=== PATIENT | female | born 1950 | race Caucasian/White ===

== ENCOUNTER 2020-10-23 09:40 | Outpatient (REF) | payer MEDICARE, SELFPAY ==
[2020-10-23 10:32] LABS: Estimated Average Glucose 157 mg/dL; Hemoglobin A1c % 7.1 %
[2020-10-23 10:53] LABS: Alanine Aminotransferase 21 U/L (0-31); Anion Gap 13 (12-20); Blood Urea Nitrogen 12 mg/dL (9-16); Carbon Dioxide 28 mmol/L (22-29); Chloride 105 mmol/L (96-108); Cholesterol 146 mg/dL; Estimated Glomerular Filt Rate > 60; Glucose Fasting 161 mg/dL (60-99); HDL Cholesterol 37 mg/dL; LDL Cholesterol Calculated 64 mg/dl; Potassium 4.1 mmol/l (3.3-5.1); Sodium 142 mmol/L (135-145); Triglycerides 229 mg/dL
[2020-10-23 11:13] LABS: Creatinine Urine 64.17 mg/dL; Microalbum/Creatinine Ratio Ur 18.7 ug/mg cr
== END 2020-10-23 09:41 | disposition home or self-care (01) ==
LOC: HO.LAB 09:40
PROVIDERS: PCP Family Medicine; Visit Provider Family Medicine
DX: I10 Essential (primary) hypertension (principal); E11.9 Type 2 diabetes mellitus without complications; E78.00 Pure hypercholesterolemia, unspecified; Z79.899 Other long term (current) drug therapy
CPT/HCPCS: 36415; 80051; 80061; 82043; 82550; 82565; 82947; 83036; 84460; 84520

== ENCOUNTER 2021-01-26 09:40 | Day surgery (SDC) | payer MEDICARE, SELFPAY ==
[2021-01-21 14:55] VITALS: BMI 26.5
--- NOTE | 2021-01-22 13:45 | P.CONAN_ITS ---
Documented by User: Chandrika Jo 01/22/21 13:45 HPI - Anesthesia Eval Consult details Narrative: 71yo F for Colonoscopy PMFSH Past Medical History Medical History CAD (coronary artery disease) COPD (chronic obstructive pulmonary disease) Depression Diabetes Elevated cholesterol GERD (gastroesophageal reflux disease) HTN (hypertension) Multiple sclerosis Surgical History Surgical History H/O colonoscopy History of tonsillectomy and adenoidectomy Hx of cardiac catheterization Hx of myomectomy Social History Social History Smoking Status: Former smoker Tobacco Type: Cigarette Smoking Quit Date: age 61 Use of substances other than those prescribed or required for medical reasons: No Advance Directives Information Provided: No Meds Allergies Allergy/AdvReac Type Severity Reaction Status Date / Time prochlorperazine Allergy Mild nausea Verified 01/26/21 10:15 [From Compazine] dizziness codeine Allergy Unknown Unknown Verified 01/21/21 14:55 Home Medications Medication Instructions Recorded Confirmed Last Taken Type aspirin [Aspirin Low Dose] 81 mg PO DAILY 01/21/21 01/26/21 01/25/21 History atorvastatin 40 mg PO DAILY 01/21/21 01/21/21 Unknown History loratadine [Claritin] 10 mg PO DAILY 01/21/21 01/21/21 Unknown History metoprolol succinate 100 mg PO DAILY 01/21/21 01/21/21 01/26/21 History omeprazole [Prilosec] 20 mg PO DAILY 01/21/21 01/21/21 Unknown History venlafaxine 75 mg PO DAILY 01/21/21 01/21/21 Unknown History Exam Exam Date and Time: January 22, 2021 1345 Height,Weight and Vital Signs: Height 4 ft 10 in Weight 57.606 kg Assessment and Plan Assessment Anesthesia Assessment: Chart Reviewed Documented by User: Canelo Hollins 01/26/21 10:51 [facility] Past Medical History Medical History CAD (coronary artery disease) COPD (chronic obstructive pulmonary disease) Depression Diabetes Elevated cholesterol GERD (gastroesophageal reflux disease) HTN (hypertension) Multiple sclerosis Surgical History Surgical History H/O colonoscopy History of tonsillectomy and adenoidectomy Hx of cardiac catheterization Hx of myomectomy Social History Social History Smoking Status: Former smoker Tobacco Type: Cigarette Smoking Quit Date: age 61 Use of substances other than those prescribed or required for medical reasons: No Advance Directives Information Provided: No Meds Allergies Allergy/AdvReac Type Severity Reaction Status Date / Time prochlorperazine Allergy Mild nausea Verified 01/26/21 10:15 [From Compazine] dizziness codeine Allergy Unknown Unknown Verified 01/21/21 14:55 Home Medications Medication Instructions Recorded Confirmed Last Taken Type aspirin [Aspirin Low Dose] 81 mg PO DAILY 01/21/21 01/26/21 01/25/21 History atorvastatin 40 mg PO DAILY 01/21/21 01/21/21 Unknown History loratadine [Claritin] 10 mg PO DAILY 01/21/21 01/21/21 Unknown History metoprolol succinate 100 mg PO DAILY 01/21/21 01/21/21 01/26/21 History omeprazole [Prilosec] 20 mg PO DAILY 01/21/21 01/21/21 Unknown History venlafaxine 75 mg PO DAILY 01/21/21 01/21/21 Unknown History Exam Airway Mallampati Class: II TM Dist: >3cm Neck ROM: Full Loose/Missing/Broken Teeth: No Heart: rrr+S1S2 Lungs: CTA B/L Assessment and Plan Assessment Anesthesia Assessment: Anesthesia Plan Discussed, PAT Visit and Chart Reviewed Final Anesthetic Review NPO: Yes ASA Class: II Final Preanesthetic Review: No Changes in Pt Med Stat, Meds/Allgs Chart Reviewed, Consent Obtained/Reviewed and Anes Risks/Benef Reviewed Patient Risk: Low Procedure Risk: Low Assessment/Block/Sedation in SS: Assess/Block/Sedation-SS Anesthetic Plan Anesthetic Plan: MAC: and Agree w/ Assess. and Plan Disposition: Standard PACU
[2021-01-26 10:06] VITALS: BP 176/110; PULSE 93; RESP 20; TEMP 36.3; O2SAT 96
[2021-01-26 10:09] LABS: Glucose, Whole Blood 149 mg/dL (60-115)
[2021-01-26] MEDS: Lactated Ringers 1,000 ML 100 ML IVCONT (10:20)
[2021-01-26 10:30] VITALS: BP 163/87
[2021-01-26 12:20] VITALS: BP 144/75; PULSE 72; RESP 16; TEMP 36.1; O2SAT 97
--- NOTE | 2021-01-26 12:22 | P.BOP_ITS ---
Brief Operative Note Date of Service: 01/26/21 Pre-op diagnosis: Screening Post-op diagnosis: other (Diverticulosis) Procedure: Colonoscopy to the cecum and TI Surgeon: Kodi Chacon Anesthesia: MAC Was an Turf And Grounds Supervisor used for this Procedure?: No Estimated blood loss (mL): 0 Pathology: none sent Condition: stable Disposition: PACU
[2021-01-26 12:35] VITALS: BP 136/81; PULSE 69; RESP 16; TEMP 36.1; O2SAT 95
--- NOTE | 2021-01-26 13:55 | OP_ITS ---
SURGEON: Kodi Chacon MD PREOPERATIVE DIAGNOSIS: Colorectal cancer screening. POSTOPERATIVE DIAGNOSIS: Colorectal cancer screening, sigmoid diverticulosis, and internal hemorrhoids. PROCEDURE PERFORMED: Colonoscopy to cecum and terminal ileum. The patient presents for evaluation of colorectal cancer screening. Full consent has been obtained from her for this, including risks of bleeding and perforation. ESTIMATED BLOOD LOSS: COMPLICATIONS: ANESTHESIA: Monitored anesthesia care. ASSISTANTS: SPECIMENS: DESCRIPTION OF PROCEDURE: The patient was placed in the left lateral decubitus position. The digital rectal exam revealed no abnormalities. The Olympus video pediatric colonoscope was entered into the rectum and advanced easily to the cecum. Once in the cecum, I did identify normal-appearing cecal pouch with appendiceal orifice and a normal-appearing ileocecal valve. The terminal ileum was cannulated and appeared normal. The scope was withdrawn back in the colon. The entire cecum and ileocecal valve appeared normal. The scope was slowly withdrawn assessing all mucosal surfaces carefully. Preparation was excellent. I did not visualize any sign of polyps, colitis, nor angiodysplasia. There was a moderate amount of sigmoid diverticulosis. In the rectum, scope was retroflexed visualizing some internal hemorrhoids, but no other pathology. The rectal mucosa appeared normal. The scope was straightened out and withdrawn from the patient. She tolerated the procedure well and was returned to the recovery area in stable condition. IMPRESSION: 1. Sigmoid diverticulosis. 2. Internal hemorrhoids. PLAN: Given the patient's negative exam, negative family history, and her age, I do not think she will need any further screening colonoscopies in the future as she would be just about 82-year-old at the time of the next colonoscopy. As such, she will see me on a p.r.n. basis. MD GUILLERMINA Sapp/KHANH / [phone]
== END 2021-01-26 12:55 | disposition home or self-care (01) ==
PROVIDERS: PCP Family Medicine; Visit Provider Internal Medicine
PROC: 0DJD8ZZ Inspection of Lower Intestinal Tract, Via Natural or Artificial Opening Endoscopic (ICD-10-PCS; CPT 45378; principal; 2021-01-26 10:50)
DX: Z12.11 Encounter for screening for malignant neoplasm of colon (principal); K57.30 Diverticulosis of large intestine without perforation or abscess without bleeding; K64.8 Other hemorrhoids; J44.9 Chronic obstructive pulmonary disease, unspecified; K21.9 Gastro-esophageal reflux disease without esophagitis; I10 Essential (primary) hypertension; E11.9 Type 2 diabetes mellitus without complications; G35 Multiple sclerosis; Z79.84 Long term (current) use of oral hypoglycemic drugs; Z79.899 Other long term (current) drug therapy; Z79.82 Long term (current) use of aspirin; Z87.891 Personal history of nicotine dependence
CPT/HCPCS: G0121; 82947

== ENCOUNTER 2021-04-22 08:44 | Outpatient (REF) | payer MEDICARE, SELFPAY ==
[2021-04-22 09:43] LABS: Alanine Aminotransferase 22 U/L (0-31); Anion Gap 14 (12-20); Blood Urea Nitrogen 13 mg/dL (9-16); Carbon Dioxide 26 mmol/L (22-29); Chloride 106 mmol/L (96-108); Cholesterol 145 mg/dL; Estimated Glomerular Filt Rate > 60; Glucose Fasting 184 mg/dL (60-99); HDL Cholesterol 33 mg/dL; LDL Cholesterol Calculated 71 mg/dl; Sodium 142 mmol/L (135-145); Triglycerides 205 mg/dL
[2021-04-22 09:49] LABS: Estimated Average Glucose 169 mg/dL; Hemoglobin A1c % 7.5 %
[2021-04-22 10:19] LABS: Creatinine Urine 148.43 mg/dL; Microalbum/Creatinine Ratio Ur 10.7 ug/mg cr
== END 2021-04-22 08:45 | disposition home or self-care (01) ==
LOC: HO.LAB 08:44
PROVIDERS: PCP Family Medicine; Visit Provider Family Medicine
DX: I10 Essential (primary) hypertension (principal); E11.9 Type 2 diabetes mellitus without complications; E78.00 Pure hypercholesterolemia, unspecified; Z79.899 Other long term (current) drug therapy
CPT/HCPCS: 36415; 80051; 80061; 82043; 82550; 82565; 82947; 83036; 84460; 84520

== ENCOUNTER 2021-09-25 08:57 | Outpatient (REF) | payer MEDICARE, SELFPAY ==
[2021-09-25 09:44] LABS: Creatinine Urine 134.83 mg/dL; Microalbum/Creatinine Ratio Ur 9.6 ug/mg cr
[2021-09-25 10:21] LABS: Anion Gap 10 (12-20); Blood Urea Nitrogen 19 mg/dL (9-16); Carbon Dioxide 30 mmol/L (22-29); Chloride 104 mmol/L (96-108); Estimated Glomerular Filt Rate > 60; Glucose Fasting 167 mg/dL (60-99); Potassium 4.4 mmol/L (3.3-5.1); Sodium 140 mmol/L (135-145)
[2021-09-25 10:39] LABS: Estimated Average Glucose 160 mg/dL; Hemoglobin A1c % 7.2 %
== END 2021-09-25 08:58 | disposition home or self-care (01) ==
LOC: HO.LAB 08:57
PROVIDERS: PCP Family Medicine; Visit Provider Family Medicine
DX: I10 Essential (primary) hypertension (principal); E11.9 Type 2 diabetes mellitus without complications
CPT/HCPCS: 36415; 80051; 82043; 82565; 82947; 83036; 84520

== ENCOUNTER 2022-03-25 08:23 | Outpatient (REF) | payer MEDICARE, SELFPAY ==
[2022-03-25 10:14] LABS: Estimated Average Glucose 163 mg/dL; Hemoglobin A1c % 7.3 %
[2022-03-25 10:40] LABS: Alanine Aminotransferase 27 U/L (0-31); Anion Gap 14 (12-20); Aspartate Amino Transferase 19 U/L (5-31); Blood Urea Nitrogen 17 mg/dL (9-16); Carbon Dioxide 24 mmol/L (22-29); Chloride 106 mmol/L (96-108); Cholesterol 169 mg/dL; Estimated Glomerular Filt Rate > 60; Glucose Fasting 196 mg/dL (60-99); HDL Cholesterol 37 mg/dL; LDL Cholesterol Calculated 83 mg/dl; Potassium 4.3 mmol/L (3.3-5.1); Sodium 140 mmol/L (135-145); Triglycerides 247 mg/dL
[2022-03-25 11:43] LABS: Creatinine Urine 51.75 mg/dL; Microalbumin Urine < 5.0 mg/L
== END 2022-03-25 08:24 | disposition home or self-care (01) ==
LOC: HO.LAB 08:23
PROVIDERS: PCP Family Medicine; Visit Provider Family Medicine
DX: I10 Essential (primary) hypertension (principal); E11.9 Type 2 diabetes mellitus without complications; E78.00 Pure hypercholesterolemia, unspecified; Z79.899 Other long term (current) drug therapy
CPT/HCPCS: 36415; 80051; 80061; 82043; 82550; 82565; 82947; 83036; 84450; 84460; 84520

== ENCOUNTER 2022-09-23 09:19 | Outpatient (REF) | payer MEDICARE, SELFPAY ==
[2022-09-23 10:36] LABS: Estimated Average Glucose 169 mg/dL; Hemoglobin A1c % 7.5 %
[2022-09-23 10:43] LABS: Alanine Aminotransferase 37 U/L (0-31); Anion Gap 12 (12-20); Aspartate Amino Transferase 25 U/L (5-31); Blood Urea Nitrogen 13 mg/dL (9-16); Carbon Dioxide 29 mmol/L (22-29); Chloride 104 mmol/L (96-108); Cholesterol 175 mg/dL; Estimated Glomerular Filt Rate > 60; Glucose Fasting 192 mg/dL (60-99); HDL Cholesterol 36 mg/dL; LDL Cholesterol Calculated 80 mg/dl; Sodium 141 mmol/L (135-145); Triglycerides 297 mg/dL
[2022-09-23 11:01] LABS: Creatinine Urine 64.97 mg/dL; Microalbum/Creatinine Ratio Ur 10.7 ug/mg cr
== END 2022-09-23 09:20 | disposition home or self-care (01) ==
LOC: HO.10HDL 09:19
PROVIDERS: Visit Provider Family Medicine
DX: I10 Essential (primary) hypertension (principal); E78.00 Pure hypercholesterolemia, unspecified; E11.9 Type 2 diabetes mellitus without complications; Z79.899 Other long term (current) drug therapy
CPT/HCPCS: 36415; 80051; 80061; 82043; 82550; 82565; 82947; 83036; 84450; 84460; 84520

== ENCOUNTER 2023-04-26 07:51 | Outpatient (REF) | payer MEDICARE, SELFPAY ==
[2023-04-26 08:38] LABS: Estimated Average Glucose 157 mg/dL; Hemoglobin A1c % 7.1 %
[2023-04-26 08:55] LABS: Alanine Aminotransferase 23 U/L (0-31); Anion Gap 18 (12-20); Aspartate Amino Transferase 19 U/L (5-31); Blood Urea Nitrogen 13 mg/dL (9-16); Carbon Dioxide 23 mmol/L (22-29); Chloride 104 mmol/L (96-108); Cholesterol 159 mg/dL; Estimated Glomerular Filt Rate > 60; Glucose Fasting 170 mg/dL (60-99); HDL Cholesterol 33 mg/dL; LDL Cholesterol Calculated 89 mg/dl; Potassium 3.5 mmol/L (3.3-5.1); Sodium 141 mmol/L (135-145); Triglycerides 186 mg/dL
[2023-04-26 11:55] LABS: Creatinine Urine 100.69 mg/dL; Microalbum/Creatinine Ratio Ur 17.8 ug/mg cr
== END 2023-04-26 07:52 | disposition home or self-care (01) ==
LOC: HO.LAB 07:51
PROVIDERS: PCP Family Medicine; Visit Provider Family Medicine
DX: I10 Essential (primary) hypertension (principal); E11.8 Type 2 diabetes mellitus with unspecified complications; E78.00 Pure hypercholesterolemia, unspecified
CPT/HCPCS: 36415; 80051; 80061; 82043; 82550; 82565; 82947; 83036; 84450; 84460; 84520

== ENCOUNTER 2023-11-25 09:01 | Outpatient (REF) | payer MEDICARE, SELFPAY ==
[2023-11-25 09:37] LABS: Estimated Average Glucose 166 mg/dL; Hemoglobin A1c % 7.4 % (<6.0)
[2023-11-25 09:51] LABS: Creatinine Urine 98.16 mg/dL; Microalbum/Creatinine Ratio Ur 11.2 ug/mg cr (<30)
[2023-11-25 10:00] LABS: Alanine Aminotransferase 19 U/L (0-31); Anion Gap 13 (12-20); Aspartate Amino Transferase 16 U/L (5-31); Blood Urea Nitrogen 20 mg/dL (9-16); Carbon Dioxide 27 mmol/L (22-29); Chloride 106 mmol/L (96-108); Estimated Glomerular Filt Rate > 60; Glucose Fasting 188 mg/dL (60-99); Potassium 4.4 mmol/L (3.3-5.1); Sodium 142 mmol/L (135-145)
== END 2023-11-25 09:02 | disposition home or self-care (01) ==
LOC: HO.LAB 09:01
PROVIDERS: PCP Family Medicine; Visit Provider Family Medicine
DX: I10 Essential (primary) hypertension (principal); E11.9 Type 2 diabetes mellitus without complications; E78.00 Pure hypercholesterolemia, unspecified; Z79.899 Other long term (current) drug therapy
CPT/HCPCS: 36415; 80051; 82043; 82550; 82565; 82570; 82947; 83036; 84450; 84460; 84520

== ENCOUNTER 2024-03-23 07:37 | Outpatient (REF) | payer MEDICARE, SELFPAY ==
[2024-03-23 08:26] LABS: Estimated Average Glucose 163 mg/dL; Hemoglobin A1c % 7.3 % (<6.0)
[2024-03-23 08:37] LABS: Alanine Aminotransferase 60 U/L (0-31); Aspartate Amino Transferase 53 U/L (5-31); Cholesterol 121 mg/dL (<200); Glucose Fasting 180 mg/dL (60-99); HDL Cholesterol 35 mg/dL (>40); LDL Cholesterol Calculated 51 mg/dL (<100); Triglycerides 176 mg/dL (<150)
== END 2024-03-23 07:38 | disposition home or self-care (01) ==
LOC: HO.LAB 07:37
PROVIDERS: PCP Family Medicine; Visit Provider Family Medicine
DX: E11.9 Type 2 diabetes mellitus without complications (principal); E78.00 Pure hypercholesterolemia, unspecified; Z79.899 Other long term (current) drug therapy
CPT/HCPCS: 36415; 80061; 82550; 82947; 83036; 84450; 84460

== ENCOUNTER 2024-06-25 08:44 | Outpatient (REF) | payer MEDICARE, SELFPAY ==
[2024-06-25 10:21] LABS: Estimated Average Glucose 160 mg/dL; Hemoglobin A1c % 7.2 % (<6.0)
[2024-06-25 10:42] LABS: Alanine Aminotransferase 22 U/L (0-31); Anion Gap 11 (12-20); Aspartate Amino Transferase 22 U/L (5-31); Blood Urea Nitrogen 14 mg/dL (9-16); Carbon Dioxide 28 mmol/L (22-29); Chloride 105 mmol/L (96-108); Estimated Glomerular Filt Rate > 60; Glucose Fasting 142 mg/dL (60-99); Potassium 4.2 mmol/L (3.3-5.1); Sodium 140 mmol/L (135-145)
[2024-06-25 11:14] LABS: Microalbumin Urine < 5.0 mg/L
== END 2024-06-25 08:45 | disposition home or self-care (01) ==
LOC: HO.LAB 08:44
PROVIDERS: PCP Family Medicine; Visit Provider Family Medicine
DX: R03.0 Elevated blood-pressure reading, without diagnosis of hypertension (principal); E78.00 Pure hypercholesterolemia, unspecified; E11.9 Type 2 diabetes mellitus without complications; Z79.899 Other long term (current) drug therapy
CPT/HCPCS: 36415; 80051; 82043; 82550; 82565; 82570; 82947; 83036; 84450; 84460; 84520

== ENCOUNTER 2025-01-28 09:17 | Outpatient (REF) | payer MEDICARE, SELFPAY ==
[2025-01-28 11:27] LABS: Alanine Aminotransferase 25 U/L (0-31); Anion Gap 12 (12-20); Aspartate Amino Transferase 24 U/L (5-31); Blood Urea Nitrogen 14 mg/dL (9-16); Carbon Dioxide 28 mmol/L (22-29); Chloride 108 mmol/L (96-108); Estimated Glomerular Filt Rate > 60; Glucose Fasting 158 mg/dL (60-99); Potassium 4.1 mmol/L (3.3-5.1); Sodium 144 mmol/L (135-145)
== END 2025-01-28 09:18 | disposition home or self-care (01) ==
LOC: HO.LAB 09:17
PROVIDERS: PCP Family Medicine; Visit Provider Family Medicine
DX: I10 Essential (primary) hypertension (principal); E78.00 Pure hypercholesterolemia, unspecified; E11.9 Type 2 diabetes mellitus without complications
CPT/HCPCS: 36415; 80051; 82550; 82565; 82947; 84450; 84460; 84520

== ENCOUNTER 2025-06-04 09:34 | Outpatient (AMB) | payer MEDICARE, SELFPAY ==
--- NOTE | 2025-06-04 09:37 | MHC.PC.OV ---
Intake Visit Reasons: 3 MO F/UP - [facility] PT Allergies prochlorperazine (From Compazine) Allergy (Mild, Verified 01/26/21 10:15) nausea dizziness codeine Allergy (Unknown, Verified 01/21/21 14:55) Unknown PFSH Medical History CAD (coronary artery disease) COPD (chronic obstructive pulmonary disease) Depression Diabetes Elevated cholesterol GERD (gastroesophageal reflux disease) HTN (hypertension) Multiple sclerosis Surgical History H/O colonoscopy History of tonsillectomy and adenoidectomy Hx of cardiac catheterization Hx of myomectomy Coding
--- NOTE | 2025-06-04 09:43 | A.OFFPC_ITS ---
Vital Signs 06/04/25 09:49 06/04/25 10:25 06/04/25 10:34 Height 4 ft 10.5 in Weight 54.885 kg BMI 24.9 BP 160/70 H 150/72 H 158/70 H Respiration 16 Pulse 77 Pulse Source Pulse Oximeter Temp 97.9 F Temp Source Temporal Artery Scan Pulse Oximetry (%) 99 Oxygen Delivery Method Room Air Intake Visit Reasons: 3 MO F/UP - TRAN PT Sock Lining Examiner Required: No Accompanied by: Self / Same As Patient Allergies prochlorperazine (From Compazine) Allergy (Mild, Verified 06/04/25 09:43) nausea dizziness codeine Allergy (Unknown, Verified 06/04/25 09:43) Unknown Medication List - Last Reconciled 06/04/25 by JEANINE Johnson amlodipine 2.5 mg PO DAILY aspirin (Linda Low Dose Aspirin) 81 mg PO DAILY atorvastatin 80 mg PO BEDTIME blood sugar diagnostic (FreeStyle Lite Strips) As directed cholecalciferol (vitamin D3) 50 mcg PO DAILY coenzyme Q10 (Ultra CoQ10) 150 mg PO DAILY loratadine (Claritin) 10 mg PO DAILY metformin 1,000 mg PO BEDTIME metoprolol succinate ER 100 mg PO DAILY modafinil 100 mg PO QAM multivitamin 1 tab PO DAILY omeprazole 20 mg PO DAILY venlafaxine ER 75 mg PO DAILY Tobacco use date assessed: 06/04/25 Fall risk assessment: No Falls in past year Last assessed Fall Risk: 06/04/25 Dental Screening Dental Screen Date: 06/04/25 Did you have a dental visit in the last 12 months?: Yes Did you have a dental problem in the last 6 months where you did not have access to dental care?: No Was dental information given to patient?: No HPI HPI Comments History of Present Illness Details 75-year-old female with history of type 2 diabetes, diabetic polyneuropathy, hypertension, coronary artery disease, multiple sclerosis, major depressive disorder, GERD, BPPV, hypercholesterolemia, depression presenting to the office today for management of chronic conditions and to establish care. She is a prior patient of Dr. Joaquin, last seen 03/06. Type 2 diabetes/diabetic polyneuropathy-last hemoglobin A1c 7.2% 05/2024. Glucose levels at home 138-180, average 140. Neuropathy is manageable. Not on medication for this. Follows annually for eye exams with mild cataracts bilaterally. On metformin CAD/HTN/HDL- follows annually with [facility] s/p BRANDEN to LAD x2 in 2001. On baby aspirin, atorvastatin, metoprolol. Blood pressure in office today 160/70, recheck 150/72. Blood pressures at home have been within normal limits 126/78, 126/75, 128/72 Multiple sclerosis- dx years ago w/ lightheadedness, nausea, no longer having symptoms. Saw Dr. Soto, but stable, no longer following. Occ short lived symptoms, primarily fatigue. Monafinil. No meds. GERD-omeprazole Concerns: MOLST form Health maintenance: Last mammo Last colonoscopy Last DEXA ROS: General: No fevers, malaise, unintentional weight loss. see hpi HEENT: No blurred vision, diplopia. No sore throat, nasal congestion, rhinorrhea, sinus pain, ear pain Cardiovascular: No chest pain, palpitations, or leg edema Respiratory: No shortness of breath, wheezing, cough GI: No abdominal pain, nausea, vomiting, diarrhea, constipation, melena, hematochezia : No dysuria, hematuria, increased urinary frequency, decreased urinary output MSK: No myalgia, back pain Neuro: No headaches, weakness, paresthesias Skin: No rashes or lesions EXAM: Constitutional - Awake and Alert, No apparent distress Eyes - PERRL Cardiovascular - S1S2, RRR, No edema Respiratory - Normal lung expansion, Normal respiratory effort, No respiratory distress, CTA bilaterally Extremities - no calf tenderness bilaterally, no swelling Skin - Warm/Dry Neurological - Alert & oriented x3 Psychological - Appropriate affect PFSH Medical History (Updated 06/04/25 @ 12:54 by JEANINE Johnson) Cataract, diabetic Diabetic polyneuropathy Multiple sclerosis Depression GERD (gastroesophageal reflux disease) COPD (chronic obstructive pulmonary disease) Elevated cholesterol HTN (hypertension) CAD (coronary artery disease) Diabetes Surgical History History of tonsillectomy and adenoidectomy Hx of myomectomy H/O colonoscopy Hx of cardiac catheterization Social History Housing: House Patient Tobacco Use Status: Former Tobacco user (Quite in 1984) e-Cigarette/Vaping Use: Never Used service: No Current occupational status: retired Cognitive needs: No Hearing needs: No Vision needs: Yes (Rx glasses) Physical exam (Primary Care) Vital Signs: Last Vital Signs Temp 97.9 F 06/04/25 09:49 Pulse 77 06/04/25 09:49 Resp 16 06/04/25 09:49 BP 158/70 H 06/04/25 10:34 Pulse Ox 99 06/04/25 09:49 Oxygen Delivery Method Room Air 06/04/25 09:49 BMI result Body Mass Index 24.9 Tobacco/Smoking Status: Tobacco use Status Tobacco use date assessed 06/04/25 06/04/25 09:51 Patient Tobacco Use Status Former Tobacco user (Quite 06/04/25 09:51 in 1984) e-Cigarette/Vaping Use Never Used 06/04/25 09:51 Advance Care Planning discussion: Completed/Scanned Date of discussion: 06/04/25 Forms completed: MOLST Time spent: 1-15 minutes, on File Actual minutes spent: 10 Coding Level of Care Code New Pt Level 4 (35959) Complex EM visit Add On G2211 Diagnoses HTN (hypertension) I10 CAD (coronary artery disease) I25.10 Diabetes E11.9 Multiple sclerosis G35 Depression F32.9 Diabetic polyneuropathy E11.42 Cataract, diabetic E11.36 Additional Codes Vital Signs *Quality* - Advance Care Planning discussion: Completed/Scanned ([id number]) Vital Signs *Quality* - Time spent: 1-15 minutes, on File ([id number]) Assessment & Plan Assessment & Plan (1) HTN (hypertension): Code(s): I10 - Essential (primary) hypertension Category: Medical Plan: Uncontrolled in the office but well-controlled at home with multiple checks. We will continue lisinopril 10 mg daily. She is advised to continue checking her blood pressure and contact the office in about 1 week with updated blood pressure readings. Will adjust medication as needed pending results (2) CAD (coronary artery disease): Comment: cardiac catheterization> 10 yr ago-2 stents Code(s): I25.10 - Atherosclerotic heart disease of [place] coronary artery without angina pectoris Category: Medical Plan: Stable. Continue following with Cardiology. Continue baby aspirin, statin, metoprolol. Lipid panel ordered. (3) Diabetes: Comment: taking metformin only Code(s): E11.9 - Type 2 diabetes mellitus without complications Category: Medical Plan: Hemoglobin A1c ordered. Continue metformin and diabetic diet. Continue with annual eye exams (4) Multiple sclerosis: Comment: has not required treatment Code(s): G35 - Multiple sclerosis Category: Medical Plan: Monitor for symptoms. Continue modafinil for fatigue (5) Depression: Code(s): F32.9 - Major depressive disorder, single episode, unspecified Category: Medical Plan: Stable. Continue venlafaxine (6) Diabetic polyneuropathy: Code(s): E11.42 - Type 2 diabetes mellitus with diabetic polyneuropathy Category: Medical Plan: Manageable. Monitor symptoms (7) Cataract, diabetic: Code(s): E11.36 - Type 2 diabetes mellitus with diabetic cataract Category: Medical Plan: Continue following with Ophthalmology, monitor Plan Follow-up in the office in 4 months with labs completed prior to visit. Labs to be completed today as well Orders: Orders Basic Metabolic Panel Today E11.9 - Type 2 diabetes mellitus without complications, E78.00 - Pure hypercholesterolemia, unspecified, I10 - Essential (primary) hypertension Complete Blood Count Auto Diff Today E11.9 - Type 2 diabetes mellitus without complications, E78.00 - Pure hypercholesterolemia, unspecified, I10 - Essential (primary) hypertension Hemoglobin A1c Today E11.9 - Type 2 diabetes mellitus without complications, E78.00 - Pure hypercholesterolemia, unspecified, I10 - Essential (primary) hypertension Lipid Panel Today E11.9 - Type 2 diabetes mellitus without complications, E78.00 - Pure hypercholesterolemia, unspecified, I10 - Essential (primary) hypertension Liver Panel Today E11.9 - Type 2 diabetes mellitus without complications, E78.00 - Pure hypercholesterolemia, unspecified, I10 - Essential (primary) hypertension Microalbumin, Random (w Creat) Today E11.9 - Type 2 diabetes mellitus without complications, E78.00 - Pure hypercholesterolemia, unspecified, I10 - Essential (primary) hypertension Hemoglobin A1c 4 Months E11.9 - Type 2 diabetes mellitus without complications, I10 - Essential (primary) hypertension, I25.10 - Atherosclerotic heart disease of [place] coronary artery without angina pectoris Basic Metabolic Panel 4 Months E11.9 - Type 2 diabetes mellitus without complications, I10 - Essential (primary) hypertension, I25.10 - Atherosclerotic heart disease of [place] coronary artery without angina pectoris
[2025-06-04 09:49] VITALS: BP 160/70; PULSE 77; RESP 16; TEMP 36.6; O2SAT 99; BMI 24.9
[2025-06-04 10:25] VITALS: BP 150/72
[2025-06-04 10:34] VITALS: BP 158/70
--- OUTSIDE RECORDS SUMMARY | 2025-06-04 11:00 | XMS_ITS | Clinical Summary ---
Author Organization [facility] Address [address] [place] [address] Phone Care Team Providers Care Per Diem Interpreter Name Role Phone Arnel Joaquin MD Primary Care Provider [phone] Surgical History Surgery Date Site/Laterality Comments STEREOTACTIC CORE BIOPSY 09/26/2010 - 09/25/2011 Left BREAST CYST ASPIRATION Left Social History Tobacco Use Types Packs/Day Years Used Date Smoking Tobacco: Never Assessed Comments No Sex and Gender Information Value Date Recorded Sex Assigned at Not on file Legal Sex Female 9:46 AM EST Gender Identity Not on file Sexual Orientation Not on file Obstetrics History Para Term AB IAB SAB Ectopic Multiple Livin g Live Births 0 Last Filed Vital Signs Vital Sign Reading Time Taken Comments Blood Pressure - - Pulse - - Temperature - - Respiratory Rate - - Oxygen Saturation - - Inhaled Oxygen Concentration - - Weight 56.7 kg (125 lb) 07/30/2024 1:30 PM EST Height 149.9 cm (4' 11 ) 07/30/2024 1:30 PM EST Body Mass Index 25.25 07/30/2024 1:30 PM EST Plan of Treatment Health Maintenance Due Date Last Done Comments Zoster Vaccines (1 of 2) 01/05/2002 DTaP,Tdap,and Td Vaccines (2 - Td or Tdap) 11/15/2008 11/15/1998 Cholesterol Screening (Lipid Panel) 08/24/2022 Colorectal Cancer Screening: Colonoscopy 08/24/2022 Falls Risk Assessment 08/24/2022 Hepatitis C Screening 08/24/2022 Medicare Annual Wellness Visit 08/24/2022 Social Influencers of Health Screening 08/24/2022 Hypertension/CHF/CAD Annual BMP Blood Test 07/30/2024 Depression Screening 09/26/2024 COVID-19 Vaccine ( season) 2025 07/18/2024, 07/23/2023, 08/13/2022, Additional history exists Influenza Vaccine (#1) 2025 4, 07/23/2023, 08/13/2022, Additional history exists Breast Cancer Screening 07/30/2026 07/30/20 24, 07/25/2023, 07/23/2022, Additional history exists RSV Immunization Adult Patients (1 - 1-dose 75+ series) 01/05/2027 Osteoporosis Screening (Bone Density Screening) 07/30/2034 07/30/2024 Hepatitis A Vaccines Aged Out 04/04/1978 No long er eligible based on patient's age to complete this topic MMR Vaccines Completed 04/06/1978, 03/02/1970 Hepatitis B Vaccines Completed 11/15/1978, 04/04/1978, 02/04/1978 Pneumococcal Vaccine: 50+ Years Completed 12/11/2021, 11/22/2019, 03/13/2017 HIB Vaccines Aged Out No longer eligi ble based on patient's age to complete this topic HPV Vaccines Aged Out No longer eligi ble based on patient's age to complete this topic IPV Vaccines Aged Out No longer eligi ble based on patient's age to complete this topic Meningococcal ACWY Vaccine Aged Out N o longer eligible based on patient's age to complete this topic Meningococcal B Vaccine Aged Out No l onger eligible based on patient's age to complete this topic RSV Immunization Patients Under 20 months Aged Out No longer eligible based on patient's age to complete this topic Varicella Vaccines Aged Out No longer eligible based on patient's age to complete this topic Procedures Procedure Name Priority Date/Time Associated Diagnosis Comments MG MAMMO DIGITAL SCREENING W YUNIOR BILAT Routine 07/30/2024 1:48 PM EST Encounter for screening mammogram for breast cancer BD BONE DENSITY DXA AXIAL SKELETON Routine 07/30/2024 1:27 PM EST Metabolic bone disease from Last 3 Months or Most Recently Relevant to Health Maintenance Results * MG Mammo Digital Screening w Yunior bilat (07/30/2024 1:48 PM EST) Anatomical Region Laterality Modality Breast Bilateral Mammography 07/30/2024 5:37 PM EST Impressions 07/30/2024 5:39 PM EST Stable mammographic appearance of the breasts. No evidence of malignancy is seen. A negative mammogram in the presence of a clinically suspicious palpable abnormality does not preclude the possibility of malignancy or alter the indications for biopsy. BI-RADS CATEGORY: 2 - BENIGN RECOMMENDATION: Screening bilateral mammogram is recommended in 1 year. Mammo Location: [facility], [address] [place] [address], [id number], . -------- FINAL REPORT -------- Dictated By: Yvonne Roesnberg Dictated Date: 07/30/2024 17:37 ET Assigned Physician: Yvonne Rosenberg Reviewed and Electronically Signed By: Yvonne Rosenberg Signed Date: 07/30/2024 17:39 ET Workstation ID: [id number] Transcribed By: Self Edit Transcribed Date: 07/30/2024 17:37 ET Narrative 07/30/2024 5:39 PM EST HISTORY: Screening. Left breast biopsies in 2010, pathology benign. COMPARISON: 07/25/23, 07/22/22, 07/20/21 TECHNIQUE: Bilateral digital breast tomosynthesis was performed in the CC and MLO projections. Computer aided detection with [employer] 3D 3.1 was employed. BREAST DENSITY: B - There are scattered areas of fibroglandular density. FINDINGS: No suspicious masses, grouped microcalcifications, or areas of architectural distortion are seen. Biopsy markers are again seen in the left breast. A subcentimeter nodule in the middle 6:00 position of the left breast has several coarse, eccentric calcifications and a slightly represents a fibroadenoma. No significant change is seen. The skin and vascularity are unremarkable. Procedure Note Yvonne Rosenberg MD - 07/30/2024 HISTORY: Screening. Left breast biopsies in 2010, pathology benign. COMPARISON: 07/25/23, 07/22/22, 07/20/21 TECHNIQUE: Bilateral digital breast tomosynthesis was performed in the CCand MLO projections. Computer aided detection with [employer] 3D 3.1was employed. BREAST DENSITY: B - There are scattered areas of fibroglandular density. FINDINGS: No suspicious masses, grouped microcalcifications, or areas ofarchitectural distortion are seen. Biopsy markers are again seen in theleft breast. A subcentimeter nodule in the middle 6:00 position of the left breast hasseveral coarse, eccentric calcifications and a slightly represents afibroadenoma. No significant change is seen. The skin and vascularity are unremarkable. IMPRESSION: Stable mammographic appearance of the breasts. No evidence of malignancyis seen. A negative mammogram in the presence of a clinically suspicious palpableabnormality does not preclude the possibility of malignancy or alter theindications for biopsy. BI-RADS CATEGORY: 2 - BENIGN RECOMMENDATION: Screening bilateral mammogram is recommended in 1 year. Mammo Location: [facility], [address] [place] [address], [id number], . -------- FINAL REPORT -------- Dictated By: Yvonne Rosenberg Dictated Date: 07/30/2024 17:37 ET Assigned Physician: Yvonne Rosenberg Reviewed and Electronically Signed By: Yvonne Rosenberg Signed Date: 07/30/2024 17:39 ET Workstation ID: [id number] Transcribed By: Self Edit Transcribed Date: 07/30/2024 17:37 ET us Self Referral Sppl IMG BI PROCEDURES Final Resul t * BD Bone Density DXA Axial Skeleton (07/30/2024 1:27 PM EST) Anatomical Region Laterality Modality Wrist, Hip, L-spine Bone Densito metry 07/30/2024 1:57 PM EST Impressions 07/30/2024 1:59 PM EST Osteopenia. [id number] -------- FINAL REPORT -------- Dictated By: Yvonne Rosenberg Dictated Date: 07/30/2024 13:57 ET Assigned Physician: Yvonne Rosenberg Reviewed and Electronically Signed By: Yvonne Rosenberg Signed Date: 07/30/2024 13:59 ET Workstation ID: [id number] Transcribed By: Self Edit Transcribed Date: 07/30/2024 13:57 ET Narrative 07/30/2024 1:59 PM EST History: Low estrogen state due to menopause. Prior smoker. Comparison: 12/26/03 Findings: Bone densitometry is performed utilizing dual energy x-ray absorptiometry (DXA) in the [employer] unit. The lumbar spine and proximal femora are evaluated in the AP projection. The FRAX questionaire was completed. The results indicate low bone mass (osteopenia), with right femoral neck and right total femur T-scores of -2.1. The Z score is -0.3, indicating bone mineral density within the range of normal for age. There have been statistically significant decreases in bone mineral density in both total femurs since the previous study. A slight increase in bone mineral density in the lumbar spine may reflect sclerotic degenerative changes. The detailed DEXA report will be mailed to the referring physician's office. DualFemur FRAX: 10-year Probability of Fracture: Major Osteoporotic 13.6 percent Hip 3.2 percent. Procedure Note Yvonne Rosenberg MD - 07/30/2024 History: Low estrogen state due to menopause. Prior smoker. Comparison: 12/26/03 Findings: Bone densitometry is performed utilizing dual energy x-ray absorptiometry(DXA) in the [employer] unit. The lumbar spine and proximal femora areevaluated in the AP projection. The FRAX questionaire was completed. The results indicate low bone mass (osteopenia), with right femoral neckand right total femur T-scores of -2.1. The Z score is -0.3, indicatingbone mineral density within the range of normal for age. There have been statistically significant decreases in bone mineraldensity in both total femurs since the previous study. A slight increasein bone mineral density in the lumbar spine may reflect scleroticdegenerative changes. The detailed DEXA report will be mailed to thereferring physician's office. DualFemur FRAX: 10-year Probability of Fracture: Major Osteoporotic 13.6percent Hip 3.2 percent. IMPRESSION: Osteopenia. [id number] -------- FINAL REPORT -------- Dictated By: Yvonne Rosenberg Dictated Date: 07/30/2024 13:57 ET Assigned Physician: Yvonne Rosenberg Reviewed and Electronically Signed By: Yvonne Rosenberg Signed Date: 07/30/2024 13:59 ET Workstation ID: [id number] Transcribed By: Self Edit Transcribed Date: 07/30/2024 13:57 ET us Arnel Joaquin MD IMG DXA PROCEDURES Final Resul t from Last 3 Months or Most Recently Relevant to Health Maintenance Insurance MEDICARE Care Teams Per Diem Interpreter Relationship Specialty Start Date End Date Arnel Joaquin MD [address] [place] [address] [place] [id number] PCP - General Internal Medicine 07/14/24
--- OUTSIDE RECORDS SUMMARY | 2025-06-04 11:00 | XMS_ITS | Patient Health Record ---
Author Organization [facility] Address [address] [place] [address] Care Team Providers Care Supervisor Microwave Name Role Phone Jemal (RETIRED) Arnel NOYOLA Primary Care Provider Unavailable Kodi Chacon Unavailable [phone] Allergies Allergen (clinical drug ingredient) Drug/Non Drug Allergy documented on EMR Reaction Allergy Type Onset Date Status codeine Codeine Sulfate Unknown Drug Allergy A ctive Reason For Referral No Information Medications Medication SIG (Take, Route, Frequency, Duration) Notes Start Date End Date Status Aspir-81 Active metFORMIN HCl 500 MG Orally Active Claritin Active Vitamin D Active Co Q 10 Active Tylenol PRN Active Atorvastatin Calcium 40 MG Orally Active PriLOSEC Active Metoprolol Succinate ER 100 MG Orally Active Venlafaxine HCl ER 75 MG Orally Active Immunizations Vaccine Route Administration Date Status Comme nts Influenza Unknown 07/09/2020 Administered Social History Tobacco Use: Social History Observation Description Date Details (start date - stop date) Former Smoker NA - NA Tobacco Use/Smoking Question Answer Notes Patient is a former smoker When did you start smoking? 30s When did you stop smoking? 20 years ago How long has it been since you last smoked? > 10 years Alcohol Screen Question Answer Notes Did you have a drink containing alcohol in the p ast year? No Points 0 Interpretation Negative Section Notes: Nonsmoker; no alcohol Problems Problem Type SNOMED Code ICD Code Onset Dates Problem Status W/U Status Risk Notes Problem 762204128 Encounter for screening for malignant neoplasm of colon (Z12.11) Active confirmed Problem 592084513 Gastroesophageal reflux disease without esophagitis (K21.9) Active confirmed Plan Of Treatment Future Test Test Name Order Date COLONOSCOPY 12/31/2020 Insurance Providers Payer Name Payer Address Payer Phone Subscriber Number Group Number Insured Name Patient Relationship to Insured Coverage Start Date Coverage End Date MEDICARE OF [place] [address] [place] [address] [id number] MICHEL CARTER Self - patient is the insured [employer] ATT[employer] CLAIMS [address] [place] [address] [id number] MICHEL CARTER Self - patient is the insured Medical (General) History Medical History History ICD Code NIDDM Coronary artery disease--? M II--cath x 2 with drug-eluting stents placed > 10 yrs ago--no problems since COPD Hypertension Hyperlipidemia Multiple sclerosis -Inactive--never need ed treatment GERD--neg EGD in 06/[address] Mary nayakn--small hiatal hernia Seasonal allergies Depression Neg screening colonoscopy in 06/[address] Velasquez Denies CVA or renal disease Surgical History Surgery Date(Month/Year) Tonsillectomy and adenoidectomy Uterine fibroid
== END 2025-06-04 10:52 | disposition home or self-care (01) ==
LOC: HO.HMCHD 09:34
PROVIDERS: PCP Family Medicine; Visit Provider Physician Assistant
DX: I10 Essential (primary) hypertension (principal); I25.10 Atherosclerotic heart disease of native coronary artery without angina pectoris; E11.42 Type 2 diabetes mellitus with diabetic polyneuropathy; E11.36 Type 2 diabetes mellitus with diabetic cataract; G35 Multiple sclerosis; F32.9 Major depressive disorder, single episode, unspecified; Z00.00 Encounter for general adult medical examination without abnormal findings

== ENCOUNTER → 2025-06-04 09:34 | Outpatient (BNVA) | payer MEDICARE, SELFPAY | PROVIDERS: PCP Family Medicine; Visit Provider Physician Assistant | DX: E11.42 Type 2 diabetes mellitus with diabetic polyneuropathy (principal); E11.36 Type 2 diabetes mellitus with diabetic cataract; H26.9 Unspecified cataract; I10 Essential (primary) hypertension; I25.10 Atherosclerotic heart disease of native coronary artery without angina pectoris; E78.5 Hyperlipidemia, unspecified; G35 Multiple sclerosis; K21.9 Gastro-esophageal reflux disease without esophagitis; F32.9 Major depressive disorder, single episode, unspecified; Z79.82 Long term (current) use of aspirin; Z79.84 Long term (current) use of oral hypoglycemic drugs; Z79.899 Other long term (current) drug therapy | CPT/HCPCS: 99202 ==

== ENCOUNTER 2025-06-04 11:04 | Outpatient (REF) | payer MEDICARE, SELFPAY ==
[2025-06-04 13:12] LABS: MANUAL DIFF FLAG NO
[2025-06-04 13:25] LABS: Hematocrit 36.7 % (37.0-47.0); Hemoglobin 12.2 g/dl (12.0-16.0); Imm Gran Abs Auto 0.03 X10*3/uL (0.00-0.03); Imm Gran Pct Auto 0.3 % (0.0-0.4); Lymphocytes Absolute Auto 1.5 X10*3/uL (1.2-4.9); Mean Corpuscular HGB Conc 33.2 g/dl (31.0-35.0); Mean Corpuscular Hemoglobin 30.5 pg (27.0-33.0); Mean Corpuscular Volume 91.8 fL (80.0-98.0); NRBC Abs Auto 0.000 X10*3/uL (0.0-0.012); NRBC Pct Auto 0.0 /100WBC (0.0-0.2); Platelet Count 319 X10*3/uL (160-400); Red Blood Count 4.00 X10*6/uL (4.20-5.50); White Blood Count 9.4 X10*3/uL (4.8-10.8)
[2025-06-04 13:29] LABS: Hemoglobin A1C 193.6663 umol/L; Total Hemoglobin (HGBA1C) 3169.8015 umol/L
[2025-06-04 13:34] LABS: Alanine Aminotransferase 31 U/L (0-31); Albumin Level 4.7 g/dL (3.5-5.0); Alkaline Phosphatase 56 U/L (39-117); Anion Gap 15 (12-20); Aspartate Amino Transferase 38 U/L (5-31); Blood Urea Nitrogen 15 mg/dL (9-16); Calcium 9.6 mg/dL (8.4-10.2); Carbon Dioxide 26 mmol/L (22-29); Chloride 104 mmol/L (96-108); Cholesterol 134 mg/dL (<200); Estimated Glomerular Filt Rate > 60; HDL Cholesterol 38 mg/dL (>40); Potassium 4.3 mmol/L (3.3-5.1); Sodium 141 mmol/L (135-145); Total Protein 7.0 g/dL (6.5-8.0); Triglycerides 141 mg/dL (<150)
[2025-06-04 15:04] LABS: Microalbum/Creatinine Ratio Ur 20.9 ug/mg cr (<30)
== END 2025-06-04 11:05 | disposition home or self-care (01) ==
LOC: HO.10HDL 11:04
PROVIDERS: Visit Provider Physician Assistant
DX: I10 Essential (primary) hypertension (principal); E11.9 Type 2 diabetes mellitus without complications; E78.00 Pure hypercholesterolemia, unspecified
CPT/HCPCS: 36415; 80048; 80061; 80076; 82043; 82570; 83036; 85025